=== PATIENT | female | born 1955 | race Two or more races ===

== ENCOUNTER → 2024-11-17 | Outpatient (CLI) | payer MEDICAID ==
[2024-11-17 09:58] LABS: Hematocrit 44.4 % (36.0-46.0); Hemoglobin 15.1 g/dL (12.2-16.2); Mean Corpuscular Hemoglobin 29.2 pg (28.0-32.0); Mean Corpuscular Volume 85.5 fL (80.0-100.0); Nucleated Red Blood Cells % 0.1 %
[2024-11-17 10:18] LABS: Alanine Aminotransferase 11 U/L (7-40); Alkaline Phosphatase 53 U/L (46-116); Anion Gap 9 (5-15); Calcium 9.3 mg/dL (8.7-10.4); Carbon Dioxide 28 mmol/L (20-31); Chloride 105 mmol/L (98-107); Potassium 4.0 mmol/L (3.5-5.1); Sodium 142 mmol/L (136-145)
[2024-11-17 10:20] LABS: BUN/Creatinine Ratio 14.5 (10.0-20.0); Blood Urea Nitrogen 12 mg/dL (9-23); Glucose 93 mg/dL (74-106); Triglycerides 72 mg/dL (< 150)
[2024-11-17 10:21] LABS: Albumin 4.6 g/dL (3.2-4.8); Total Protein 6.8 g/dL (5.7-8.2)
[2024-11-17 10:22] LABS: Bilirubin, Total 0.8 mg/dL (0.2-1.0); Cholesterol 256 mg/dL (< 200); HDL Cholesterol 123 mg/dL (40-59)
[2024-11-17 10:34] LABS: Uric Acid 4.2 mg/dL (3.1-7.8)
== END | disposition home or self-care (01) ==
LOC: LAB 09:22
PROVIDERS: ATTEND Family Medicine
DX: Z12.11 Encounter for screening for malignant neoplasm of colon (principal); Z13.89 Encounter for screening for other disorder; Z11.3 Encounter for screening for infections with a predominantly sexual mode of transmission; Z00.01 Encounter for general adult medical examination with abnormal findings
CPT/HCPCS: 36415; 80053; 80061; 83036; 84443; 84550; 85025

== ENCOUNTER 2025-01-29 11:02 | Outpatient (CLI) | payer MEDICAID ==
[2025-01-29 11:30] LABS: Urine Protein, UAD Negative (Negative)
[2025-01-29 11:57] LABS: Microalb/Creat Ratio, Urine 11.0
== END 2025-01-29 17:00 | disposition home or self-care (01) ==
LOC: LAB 11:02
PROVIDERS: ATTEND Family Medicine
DX: E78.5 Hyperlipidemia, unspecified (principal); R73.03 Prediabetes; R10.9 Unspecified abdominal pain; R01.1 Cardiac murmur, unspecified; Z00.01 Encounter for general adult medical examination with abnormal findings
CPT/HCPCS: 36415; 81001; 82043; 82570; 87086